=== PATIENT | female | born 1970 | race African-American/Black ===

== ENCOUNTER → 2017-07-19 | Day surgery (SDC) | payer OTHER ==
[~2017-07-19] MED LIST: ACETAMINOPHEN 1000 MG/100 ML 100 ML IV ONE; BUPIVACAINE/EPINEPHRINE 0.5% 50 ML VIAL ONE; DEXAMETHASONE SOD PHOS 4 MG/ML VIAL IV ONE; HEPARIN SODIUM - IV 10,000 UNITS/10 ML VIAL ONE; HYDR-3535 PO; IRONTAB4 PO; ISOSULFAN BLUE 50 MG/5 ML VIAL SQ ONE; LACTATED RINGER'S 1000 ML INJ 1,000 ML IV ONE; LACTATED RINGER'S 1000 ML INJ 1,000 ML ONE; LIDOCAINE 1.5%/EPINEPHrine 1:200,000 PF SOLN 30 ML AMP ONE; LIDOCAINE HCL 1% PF 5 ML AMPULE OTHER ONE; MEPERIDINE HCL 50 MG/ML VIAL ONE; MIDAZOLAM HCL 2 MG/2 ML VIAL ONE; MORPHINE SULFATE 4 MG/ML INJ ONE; ONDANSETRON HCL 4 MG/2 ML VIAL IV PUSH ONE; PROPOFOL 200 MG/20 ML AMP IV ONE; SERT-129 PO; SODIUM CHLORIDE 0.9% 20 ML VIAL ONE; ceFAZolin 2 GM PREMIX 50 ML ONE; oxyCODONE/ACETAMINOPHEN 5 MG/325 MG TAB ONE
--- NOTE | 2017-07-19 15:24 | TN ---
cc: [facility] MD DATE OF SURGERY: 07/19/2017 PREOPERATIVE DIAGNOSIS Right breast invasive ductal carcinoma. POSTOPERATIVE DIAGNOSIS Right breast invasive ductal carcinoma. PROCEDURE 1. Left subclavian [id number]. 2. Right axillary sentinel lymph node biopsy. 3. Needle-localized right breast lumpectomy. SURGEON [facility]. [employer] DES[employer] Staff. ANESTHESIA General. COMPLICATIONS None apparent. ESTIMATED BLOOD LOSS 30 cc. SPECIMENS 1. [place] lymph node #1, count 11,817. 2. [place] lymph node #2, count 15,032. 3. Axillary contents. 4. Right breast mass, short suture superior, long lateral. 5. Right breast tissue, short suture new superior margin, long new lateral margin, single suture deep margin. 6. Right breast tissue, suture at final deep margin. INDICATIONS The patient is a 46-year-old female who was noted on imaging to have a right breast mass. She underwent ultrasound-guided core needle biopsy revealing invasive moderately differentiated ductal carcinoma. She had no clinical lymphadenopathy. She had HER-2 positivity on FISH. After discussion with the patient as well as consultation with radiation oncology and presentation at the breast cancer conference, we planned the above procedure. PROCEDURE IN DETAIL The patient was taken to the operating room and placed in the supine position. General anesthesia was induced. The upper chest, neck and right axilla was prepped and draped in the usual sterile fashion. A surgical timeout was performed to verify correct patient, procedure and site. 5 cc of methylene blue was injected in the peritumoral area in the right breast. In the left upper chest local anesthetic was used to infiltrate the skin and subcutaneous tissue. A large bore needle was used to access the left subclavian vein and the wire fed easily. The position was confirmed with fluoroscopy. Local anesthetic was injected inferior to the wire in the area of the pocket. A 3 cm transverse incision was made and the pocket was created using Metzenbaum scissors and blunt dissection. The dilator and sheath were then introduced under fluoroscopic guidance and the dilator and wire were removed. The catheter was then cut to 20 cm and placed through the sheath. The sheath was then removed. The catheter was attached to the port which was placed in the port pocket. The position was confirmed with fluoroscopy. The catheter easily withdrew blood and was flushed with heparinized saline. The incision was closed with deep dermal 3-0 Vicryl suture and subcuticular 4-0 Monocryl as well as Dermabond. The [id number] placed was a PowerPort. Attention was turned to the right axilla. The gamma probe was used to approximate the area where the sentinel lymph nodes would be. Local anesthetic was injected and a 3-4 cm incision made at the inferior hairline in the right axilla. Electrocautery was used to dissect through the clavipectoral fascia and the axilla was entered. The gamma probe was used to locate abnormal lymph nodes. The initial sentinel node removed using electrocautery was labeled as sentinel lymph node #1. This was a blue node. The count was 11,817. It was enlarged and somewhat firm. Next, closer to the chest wall a second sentinel node was identified and removed with a count 15,032. Another small lymph node and some axillary fat was removed and that had no count or blue dye. Hemostasis was achieved and there was less than a 10% background radiation in the axilla. Therefore, the axilla was closed with deep dermal 3-0 Vicryl suture and subcuticular 4-0 Monocryl. Attention was turned to the needle-localized lumpectomy. The mass was approximately at the 12 o'clock position 2 cm from the nipple. It was also palpable. The wire had been introduced laterally. The border of the areola was infiltrated with lidocaine superiorly and a periareolar incision made. Dissection was carried out down to the underlying wire and more proximally. It was then cut with wire cutters and the external portion removed. A specimen around the wire in the augustina was circumferentially dissected with electrocautery and then removed. It was marked with a short stitch superior, long lateral, and sent to radiology. This did return after being evaluated by radiology ultrasound to have included the mass with no obvious infiltration at the margins. However, grossly there did appear to be a significant amount of dense concerning tissue deep and lateral in all directions from the lumpectomy specimen. Therefore, I took at least another centimeter of margin in the deep in all directions immediately laterally, superiorly and inferiorly. This was marked with a right short suture new superior margin along the lateral, and single suture deep margin. Another small amount of breast tissue was taken at the deep margin and a suture placed at the final deep margin for this specimen. Hemostasis was achieved in the lumpectomy cavity and the skin was closed with deep dermal 3-0 Vicryl sutures and subcuticular 4-0 Monocryl. Dermabond was placed at the port site in the right axilla and Steri-Strips at the breast. The patient tolerated the procedure well and was extubated and taken to PACU in stable condition. MD JOANNA Sarmiento/DAMI /2:46 PM /3:08 PM JUAN
== END | disposition home or self-care (01) ==
LOC: ESDC 06:51
PROVIDERS: ATTEND Surgery
DX: C50.911 Malignant neoplasm of unspecified site of right female breast (principal)
CPT/HCPCS: 00400; 01610; 19125; 36590; 38525; 38792; 77001; 88305; 88307; C1788; J0131; J0690; J1100; J1644; J2175; J2250; J2270; J2405; J3010; J7120; Q9968

== ENCOUNTER → 2017-08-16 | Day surgery (SDC) | payer OTHER ==
[~2017-08-16] MED LIST changes: +BUPIVACAINE/EPINEPHRINE 0.25% PF 30 ML VIAL OTHER ONE; -BUPIVACAINE/EPINEPHRINE 0.5% 50 ML VIAL ONE; -DEXAMETHASONE SOD PHOS 4 MG/ML VIAL IV ONE; -HEPARIN SODIUM - IV 10,000 UNITS/10 ML VIAL ONE; -ISOSULFAN BLUE 50 MG/5 ML VIAL SQ ONE; +KETOROLAC TROMETHAMINE 30 MG/ML (IVP) VIAL ONE; -LACTATED RINGER'S 1000 ML INJ 1,000 ML IV ONE; -LIDOCAINE 1.5%/EPINEPHrine 1:200,000 PF SOLN 30 ML AMP ONE; -LIDOCAINE HCL 1% PF 5 ML AMPULE OTHER ONE; -MEPERIDINE HCL 50 MG/ML VIAL ONE; -MORPHINE SULFATE 4 MG/ML INJ ONE; -SODIUM CHLORIDE 0.9% 20 ML VIAL ONE
== END | disposition home or self-care (01) ==
LOC: ESDC 11:21
PROVIDERS: ATTEND Surgery
DX: C50.911 Malignant neoplasm of unspecified site of right female breast (principal)
CPT/HCPCS: 00400; 19301; 88307; J0131; J0690; J1885; J2250; J2405; J3010; J7120

== ENCOUNTER 2017-12-29 09:55 | Emergency (ER) | payer OTHER ==
[~2017-12-29] VITALS: Ht 177.8 cm; Wt 100.0 kg
[~2017-12-29 09:55] MED LIST changes: -ACETAMINOPHEN 1000 MG/100 ML 100 ML IV ONE; -BUPIVACAINE/EPINEPHRINE 0.25% PF 30 ML VIAL OTHER ONE; -KETOROLAC TROMETHAMINE 30 MG/ML (IVP) VIAL ONE; -LACTATED RINGER'S 1000 ML INJ 1,000 ML ONE; -MIDAZOLAM HCL 2 MG/2 ML VIAL ONE; -ONDANSETRON HCL 4 MG/2 ML VIAL IV PUSH ONE; -PROPOFOL 200 MG/20 ML AMP IV ONE; -ceFAZolin 2 GM PREMIX 50 ML ONE; -oxyCODONE/ACETAMINOPHEN 5 MG/325 MG TAB ONE
[2017-12-29 10:10] VITALS: BP 117/64; PULSE 90; RESP 29; TEMP 98.1; O2SAT 100
[2017-12-29] MEDS ORDERED: SODIUM CHLOR 0.9% 1000 ML INJ 1,000 ML IV SCH (10:31)
[2017-12-29] MEDS ORDERED: PROCHLORPERAZINE INJ 10 MG/2 ML VIAL IV PUSH ONE (10:45)
[2017-12-29] MEDS ORDERED: SODIUM CHLORIDE 0.9% FLUSH 10 ML FLUSH IV FLUSH PRN (10:45)
[2017-12-29] MEDS ORDERED: ONDANSETRON HCL 4 MG/2 ML VIAL IV PUSH ONE (10:45)
--- NOTE | 2017-12-29 11:27 | RADRPT ---
EXAM DATE/TIME: 12/29/2017 11:10 [facility] COMPARISON: No previous studies available for comparison. INDICATIONS : Short of breath, nauseous. MEDICAL HISTORY : Carcinoma, breast. SURGICAL HISTORY : chemotherapy for breast cancer ENCOUNTER: Initial ACUITY: 3 days PAIN SCORE: 0/10 LOCATION: Bilateral chest FINDINGS: A single view of the chest demonstrates the lungs to be symmetrically aerated without evidence of mas s, infiltrate or effusion. Left-sided port in good position with tip in the SVC. No pneumothorax The cardiomediastinal contours are unremarkable. Osseous structures are intact. CONCLUSION: No acute disease. Roni Viveros MD on December 29, 2017 at 11:26 Board Certified Radiologist. This report was verified electronically.
[2017-12-29] MEDS ORDERED: LORazepam 2 MG/ML VIAL IV PUSH ONE (11:30)
[2017-12-29 11:36] LABS: AUTOMATED NEUTROPHIL # 2.8 TH/MM3 (1.8-7.7); BASOPHIL % 0.2 % (0.0-2.0); EOSINOPHIL % 0.7 % (0.0-4.0); HEMOGLOBIN 11.6 GM/DL (11.6-15.3); LYMPH % 34.6 % (9.0-44.0); LYMPHOCYTE # 1.8 TH/MM3 (1.0-4.8); MEAN CELL VOLUME 87.8 FL (80.0-100.0); MEAN CORPUSCULAR HGB CONC 34.2 % (32.0-36.0); MEAN PLATELET VOLUME 8.5 FL (7.0-11.0); MONO % 12.2 % (0.0-8.0); MONOCYTE # 0.7 TH/MM3 (0-0.9); NEUT % 52.3 % (16.0-70.0); PLATELET COUNT 214 TH/MM3 (150-450); RED BLOOD COUNT 3.87 MIL/MM3 (4.00-5.30); RED CELL DISTRIBUTION WIDTH 16.8 % (11.6-17.2); WHITE BLOOD COUNT 5.3 TH/MM3 (4.0-11.0)
[2017-12-29 11:38] LABS: BACTERIA, URINE OCC /hpf; BILIRUBIN, URINE NEG (NEG); BLOOD, URINE MOD (NEG); GLUCOSE,URINE 70 mg/dL (NEG); HYALINE CAST, URINE 3 /lpf (RARE); KETONE, URINE NEG (NEG); MUCUS URINE MANY /lpf (OCC); NITRITE,URINE NEG (NEG); PH, URINE 6.5 (5.0-8.5); SQUAMOUS EPITHELIAL CELL URINE 1 /hpf (0-5); URINE COLOR YELLOW (YELLW/STRAW); URINE LEUKOCYTE ESTERASE NEG (NEG)
[2017-12-29 11:55] LABS: ALBUMIN 4.3 GM/DL (3.4-5.0); ALKALINE PHOSPHATASE 67 U/L (45-117); ALT (GPT) 27 U/L (10-53); AST (GOT) 20 U/L (15-37); BICARBONATE 28.2 MEQ/L (21.0-32.0); BLOOD UREA NITROGEN 15 MG/DL (7-18); CALCIUM 9.7 MG/DL (8.5-10.1); CHLORIDE 97 MEQ/L (98-107); CREATININE 0.87 MG/DL (0.50-1.00); GLOMERULAR FILTRATION RATE 84 ML/MIN (>89); GLUCOSE,RANDOM 94 MG/DL (74-106); SODIUM (NA) 136 MEQ/L (136-145); TOTAL BILIRUBIN ADULT 0.3 MG/DL (0.2-1.0); TOTAL PROTEIN 8.2 GM/DL (6.4-8.2)
[2017-12-29] MEDS ORDERED: POTASSIUM CHLORIDE 20 MEQ CONTROLLED RELEASE TAB PO ONE (12:30)
[2017-12-29 12:44] LABS: BANDS 16 % (0-6); LYMPHOCYTES 36 % (9-44); MONOCYTES 8 % (0-8); NEUTROPHIL # MANUAL DIFF 2.9 TH/MM3 (1.8-7.7); POLYS (SEG NEUTROPHILS) 38 % (16-70)
[2017-12-29] MEDS ORDERED: POTA10SO12 PO (12:50)
[2017-12-29] MEDS ORDERED: REGL10TA5 PO (12:50)
--- NOTE | 2017-12-29 12:50 | PD ---
HPI Chief Complaint: Respiratory Distress Time Seen by Provider: 10:31 Travel History International Travel<30 days: No Contact w/Intl Traveler<30days: No Traveled to known affect area: No History of Present Illness HPI 46 yo F hx breast ca currently undergoing chemotherapy reports severe nausea and vomiting since her last treatment. Any po intake worsens nausea and vomiting. No fever. Pt reports shortness of breath. No chest pain. Duration reported to be a few days much worse today. PFSH Past Medical History Cancer: Yes (breast ) Chemotherapy: Yes (Last ) Implanted Vascular Access Dvce: Yes (left chest port) Tetanus Vaccination: Unknown Influenza Vaccination: No ?: Not : 5 Para: 3 : 2 Past Surgical History Body Medical Devices: port Other Surgery: Yes (right lumpectomy x2) Social History Alcohol Use: No (occasional) Tobacco Use: No Substance Use: No Allergies-Medications (Allergen,Severity, Reaction): Coded Allergies: No Known Allergies (Verified Allergy, Unknown, 12/29/17) Reported Meds & Prescriptions Reported Meds & Active Scripts Active Reglan (Metoclopramide HCl) 10 Mg Tab 10 Mg PO TIDAC PRN Potassium Chloride Liq (Potassium Chloride) 20 Meq/15 Ml Soln 20 Meq PO DAILY 7 Days Lortab 10 mg/325 mg (Hydrocodone/Acetaminophen 10 mg/325 mg) 1 Tab 1 Tab PO Q6HR PRN Reported Iron 100 Plus (Iron/Vitamin C/Vitamin B12) Plus Tab 1 Tab PO Sertraline 100 mg (Sertraline HCl) 100 Mg Tab 1 Tab PO DAILY Review of Systems Except as stated in HPI: all other systems reviewed are Neg General / Constitutional: No: Fever Eyes: No: Visual changes HENT: No: Headaches Physical Exam Narrative GENERAL: 46 yo F, WNWD, mild distress due to nausea and frequent wretching Vital Signs Date Time Temp Pulse Resp B/P (MAP) Pulse Ox O2 Delivery O2 Flow Rate FiO2 12/29/17 13:01 12/29/17 10:10 98.1 90 29 117/64 (81) 100 Room Air SKIN: Warm and dry. HEAD: Atraumatic. Normocephalic. EYES: Pupils equal and round. No scleral icterus. No injection or drainage. ENT: No nasal bleeding or discharge. Mucous membranes pink and moist. NECK: Trachea midline. No JVD. CARDIOVASCULAR: Regular rate and rhythm. RESPIRATORY: Tachypnea. Lungs clear. O2 sat 100% on RA. GASTROINTESTINAL: Abdomen soft, non-tender, nondistended. Hepatic and splenic margins not palpable. MUSCULOSKELETAL: Extremities without clubbing, cyanosis, or edema. No obvious deformities. NEUROLOGICAL: Awake and alert. No obvious cranial nerve deficits. Motor grossly within normal limits. Five out of 5 muscle strength in the arms and legs. Normal speech. PSYCHIATRIC: Mild anxiety. pleasant cooperative. Data Data Last Documented VS Vital Signs Date Time Temp Pulse Resp B/P (MAP) Pulse Ox O2 Delivery O2 Flow Rate FiO2 12/29/17 13:01 12/29/17 10:10 98.1 90 29 100 Room Air Orders Orders Iv Access Insert/Monitor (12/29/17 10:31) Ecg Monitoring (12/29/17 10:31) Oximetry (12/29/17 10:31) Sodium Chlor 0.9% 1000 Ml Inj (Ns 1000 M (12/29/17 10:31) Sodium Chloride 0.9% Flush (Ns Flush) (12/29/17 10:45) Prochlorperazine Inj (Compazine Inj) (12/29/17 10:45) Ondansetron Inj (Zofran Inj) (12/29/17 10:45) Complete Blood Count With Diff (12/29/17 10:58) Comprehensive Metabolic Panel (12/29/17 10:58) Urinalysis - C+S If Indicated (12/29/17 10:58) Lipase (12/29/17 10:58) Chest, Single Ap (12/29/17 10:58) Lorazepam Inj (Ativan Inj) (12/29/17 11:30) Potassium Chloride (Kcl) (12/29/17 12:30) Ed Discharge Order (12/29/17 12:51) Labs Laboratory Tests Test 12/29/17 10:45 12/29/17 11:06 White Blood Count 5.3 TH/MM3 Red Blood Count 3.87 MIL/MM3 Hemoglobin 11.6 GM/DL Hematocrit 34.0 % Mean Corpuscular Volume 87.8 FL Mean Corpuscular Hemoglobin 30.0 PG Mean Corpuscular Hemoglobin Concent 34.2 % Red Cell Distribution Width 16.8 % Platelet Count 214 TH/MM3 Mean Platelet Volume 8.5 FL Neutrophils (%) (Auto) 52.3 % Lymphocytes (%) (Auto) 34.6 % Monocytes (%) (Auto) 12.2 % Eosinophils (%) (Auto) 0.7 % Basophils (%) (Auto) 0.2 % Neutrophils # (Auto) 2.8 TH/MM3 Lymphocytes # (Auto) 1.8 TH/MM3 Monocytes # (Auto) 0.7 TH/MM3 Eosinophils # (Auto) 0.0 TH/MM3 Basophils # (Auto) 0.0 TH/MM3 CBC Comment AUTO DIFF Differential Total Cells Counted 100 Neutrophils % (Manual) 38 % Band Neutrophils % 16 % Lymphocytes % 36 % Monocytes % 8 % Eosinophils % 2 % Neutrophils # (Manual) 2.9 TH/MM3 Differential Comment FINAL DIFF MANUAL Platelet Estimate NORMAL Platelet Morphology Comment NORMAL Red Cell Morphology Comment NORMAL Blood Urea Nitrogen 15 MG/DL Creatinine 0.87 MG/DL Random Glucose 94 MG/DL Total Protein 8.2 GM/DL Albumin 4.3 GM/DL Calcium Level 9.7 MG/DL Alkaline Phosphatase 67 U/L Aspartate Amino Transf (AST/SGOT) 20 U/L Alanine Aminotransferase (ALT/SGPT) 27 U/L Total Bilirubin 0.3 MG/DL Sodium Level 136 MEQ/L Potassium Level 2.8 MEQ/L Chloride Level 97 MEQ/L Carbon Dioxide Level 28.2 MEQ/L Anion Gap 11 MEQ/L Estimat Glomerular Filtration Rate 84 ML/MIN Lipase 69 U/L Urine Color YELLOW Urine Turbidity HAZY Urine pH 6.5 Urine Specific [place] 1.025 Urine Protein 100 mg/dL Urine Glucose (UA) 70 mg/dL Urine Ketones NEG mg/dL Urine Occult Blood MOD Urine Nitrite NEG Urine Bilirubin NEG Urine Urobilinogen LESS THAN 2.0 MG/DL Urine Leukocyte Esterase NEG Urine RBC 7 /hpf Urine WBC 5 /hpf Urine Squamous Epithelial Cells 1 /hpf Urine Bacteria OCC /hpf Urine Hyaline Casts 3 /lpf Urine Mucus MANY /lpf Microscopic Urinalysis Comment CULT NOT INDICATED MDM Medical Decision Making Medical Screen Exam Complete: Yes Emergency Medical Condition: Yes Medical Record Reviewed: Yes Differential Diagnosis ctx side effeccts, anemia, renal disease, pna, viral process, uti, coronary disease, pe Narrative Course Last Impressions Chest X-Ray 12/29/17 1058 Signed Impressions: Service Date/Time: December 11:10 - CONCLUSION: No acute disease. Roni F. Tocci, MD CBC & BMP Diagram 12/29/17 10:45 Total Protein 8.2, Albumin 4.3, Calcium Level 9.7, Alkaline Phosphatase 67, Aspartate Amino Transf (AST/SGOT) 20, Alanine Aminotransferase (ALT/SGPT) 27, Total Bilirubin 0.3 Pt received IVF and antiemetics with brisk and significant imrpvoement. pt subsequently was eager to leave in order to pick and shovel man her son from school. she had prior reported anxiety. ativan conferred substantial benefit. K replenished here and likely 2/2 vomiting. return precautions discussed. pt has reliable outpt followup and although I would like to observe her a little longer she is eager to leave, dressed and ready to go. keeping her any longer will likley lead to more anxiety furtherore,. Diagnosis Primary Impression: Nausea & vomiting Qualified Codes: R11.2 - Nausea with vomiting, unspecified Additional Impression: Hypokalemia Referrals: Ugo Novak MD call for appointment Med/Other Pt SpecificInfo: Prescription(s) given Scripts Metoclopramide (Reglan) 10 Mg Tab 10 MG PO TIDAC Y for NAUSEA OR VOMITING, #20 TAB 0 Refills Prov: Rosalio Vaca MD 12/29/17 Potassium Chloride Liq (Potassium Chloride Liq) 20 Meq/15 Ml Soln 20 MEQ PO DAILY for Electrolyte Replacement for 7 Days, #105 ML 0 Refills Prov: Rosalio Vaca MD 12/29/17 Disposition: 01 DISCHARGE HOME Condition: Stable Rosalio Vaca MD Dec 29, 2017 12:50
== END 2017-12-29 13:00 | disposition home or self-care (01) ==
LOC: NEPE 09:55
DX: C50.919 Malignant neoplasm of unspecified site of unspecified female breast (principal); R11.2 Nausea with vomiting, unspecified; R06.02 Shortness of breath; E87.6 Hypokalemia
CPT/HCPCS: 71045; 80053; 81001; 83690; 85007; 85027; 96361; 96374; 96375; 99284; J0780; J2060; J2405; J7030